=== PATIENT | male | born 1995 | race Caucasian/White ===

== ENCOUNTER 2020-03-22 18:35 | Emergency (ER) | payer OTHER, SELFPAY ==
[~2020-03-22] VITALS: Ht 180.3 cm; Wt 65.8 kg
[2020-03-22 18:37] VITALS: Ht 180.3 cm; Wt 65.8 kg
[2020-03-22 20:42] VITALS: BP 132/76
== END 2020-03-22 20:42 | disposition home or self-care (01) ==
LOC: ED 18:35
DX: J02.0 Streptococcal pharyngitis (principal); Z98.890 Other specified postprocedural states

== ENCOUNTER 2020-04-08 13:58 | Emergency (ER) | payer OTHER ==
[~2020-04-08] VITALS: Ht 180.3 cm; Wt 64.4 kg
[2020-04-08 14:56] VITALS: Ht 180.3 cm; Wt 64.4 kg
[2020-04-08 18:45] VITALS: BP 122/71
== END 2020-04-08 18:45 | disposition home or self-care (01) ==
LOC: ED 13:58
DX: H02.846 Edema of left eye, unspecified eyelid (principal); B34.9 Viral infection, unspecified
CPT/HCPCS: J7512; Q0163